=== PATIENT | male | born 1965 | race African-American/Black ===

== ENCOUNTER 2019-01-26 08:29 | Day surgery (SDC) | payer OTHER ==
[2019-01-26 10:10] LABS: ADD UMIC NO; UR ASCORBIC ACID NEGATIVE (NEGATIVE); UR BILIRUBIN (Dip) NEGATIVE (NEGATIVE); UR BLOOD (Dip) NEGATIVE (NEGATIVE); UR CLARITY CLEAR (CLEAR); UR COLOR YELLOW (YELLOW); UR GLUCOSE (Dip) NEGATIVE (NEGATIVE); UR KETONES (Dip) NEGATIVE (NEGATIVE); UR LEUKOCYTE ESTERASE (Dip) NEGATIVE Leu/ul (NEGATIVE); UR NITRITE (Dip) NEGATIVE (NEGATIVE); UR SPECIFIC GRAVITY (Dip) 1.025 (1.003-1.030); UR TOTAL PROTEIN (Dip) NEGATIVE (NEGATIVE); UR UROBILINOGEN (Dip) NEGATIVE (NEGATIVE)
[2019-01-26 10:23] LABS: ANION GAP 6 (5-13); BLOOD UREA NITROGEN 14 mg/dl (7-20); CALCIUM 8.8 mg/dl (8.4-10.2); CARBON DIOXIDE 26 mmol/L (21-31); CHLORIDE 106 mmol/L (97-110); CREATININE 0.75 mg/dl (0.61-1.24); Estimated GFR > 60 mL/min (>60); GLUCOSE 96 mg/dl (70-220); POTASSIUM 4.6 mmol/L (3.5-5.1); SODIUM 138 mmol/L (135-144)
[2019-01-26] MEDS ORDERED: ONDANSETRON 4 MG INJ (12:16)
[2019-01-26] MEDS ORDERED: CEFAZOLIN 1 GM INJ (12:16)
[2019-01-26] MEDS ORDERED: LIDOCAINE 2% (SDV) 5 ML INJ (12:16)
[2019-01-26] MEDS ORDERED: PROPOFOL 20 ML (12:16)
[2019-01-26] MEDS ORDERED: MEPERIDINE 100 MG INJ (12:16)
[2019-01-26] MEDS: CEFAZOLIN 2 GM/50 ML (PMX) 50 ML IVPB (12:36)
[2019-01-26] MEDS ORDERED: OXYCODONE/ACETAMINOPHEN (5/325) TAB PO ×2 (13:00)
[2019-01-26] MEDS ORDERED: HYDROmorphONE 1 MG/5 ML IV SYRINGE IV ×2 (13:00)
[2019-01-26] MEDS ORDERED: METOCLOPRAMIDE 10 MG INJ IV (13:00)
[2019-01-26] MEDS ORDERED: EPHEDrine 25 MG/5 ML SYG IV (13:00)
[2019-01-26] MEDS ORDERED: DIPHENHYDRAMINE 50 MG INJ IV (13:00)
[2019-01-26] MEDS ORDERED: MIDAZOLAM 1 MG/ML 2 ML INJ IV (13:00)
[2019-01-26] MEDS ORDERED: FENTAnyl 50 MCG/ML VIAL IV ×2 (13:00)
[2019-01-26] MEDS ORDERED: MEPERIDINE 25 MG INJ IV (13:00)
[2019-01-26] MEDS ORDERED: hydrALAzine 20 MG INJ IV (13:00)
[2019-01-26] MEDS ORDERED: ONDANSETRON 4 MG INJ IV (13:00)
[2019-01-26] MEDS ORDERED: LABETALOL HCL 20MG INJ IV (13:00)
[2019-01-26] MEDS: BACITRACIN 0.9 GM OINT (13:21)
[2019-01-26] MEDS: BUPIVACAINE 0.25% (MPF) 30 ML INJ (13:26)
[2019-01-26] MEDS: FENTAnyl 50 MCG/ML VIAL IV (14:01)
[2019-01-26] MEDS: HYDROmorphONE 1 MG/5 ML IV SYRINGE IV (14:36)
== END 2019-01-26 15:40 | disposition home or self-care (01) ==
LOC: SDS 08:29
DX: S62.316A Displaced fracture of base of fifth metacarpal bone, right hand, initial encounter for closed fracture (principal); E66.9 Obesity, unspecified; R94.31 Abnormal electrocardiogram [ECG] [EKG]; X58.XXXA Exposure to other specified factors, initial encounter; Y93.89 Activity, other specified; Y92.89 Other specified places as the place of occurrence of the external cause; Y99.8 Other external cause status
CPT/HCPCS: 26615; 73130-RT; 80048; 81003; 93005